=== PATIENT | female | born 1985 | race Caucasian/White ===

== ENCOUNTER 2020-05-22 10:41 | Emergency (ER) | payer BC, MEDICAID ==
[~2020-05-22] VITALS: Ht 157.4 cm; Wt 74.8 kg
[~2020-05-22 10:41] MED LIST: ALPR-114 PO; AMLO5TAB2 PO; AZIT250T12 PO; DCS100C PO; DOXY100C42 PO; HYDR-34 PO; IBP600T1 PO; INDO50CA PO; METR500T PO; SULF1TAB7 PO; Simethicone PO; TRAM50TA2 PO
[2020-05-22] MEDS ORDERED: ONDANSETRON 4 MG/2 ML (SDV) Z0FRAN IVP ONE (10:45)
[2020-05-22] MEDS ORDERED: LACTATED RINGERS 1,000 ML IV ONE (10:45)
[2020-05-22 11:22] LABS: BASOPHILS # (AUTO) 0.1 10^3/uL (0.0-0.1); BASOPHILS % (AUTO) 0 % (0-10); EOSINOPHILS # (AUTO) 0.1 10^3/uL (0.0-0.3); EOSINOPHILS % (AUTO) 1 % (0-10); HEMATOCRIT 48 % (35-52); HEMOGLOBIN 16.2 g/dL (11.5-16.0); LYMPHOCYTES % (AUTO) 22 % (12-44); MEAN CORPUSCULAR HEMOGLOBIN 36 pg (25-34); MEAN CORPUSCULAR HGB CONC 34 g/dL (32-36); MEAN CORPUSCULAR VOLUME 105 fL (80-99); MEAN PLATELET VOLUME 9.3 fL (9.0-12.2); MONOCYTES # (AUTO) 0.7 10^3/uL (0.0-1.0); MONOCYTES % (AUTO) 5 % (0-12); NEUTROPHILS # (AUTO) 9.9 10^3/uL (1.8-7.8); NEUTROPHILS % (AUTO) 72 % (42-75); PLATELET COUNT 358 10^3/uL (130-400); WHITE BLOOD COUNT 13.8 10^3/uL (4.3-11.0)
[2020-05-22 11:40] LABS: BILIRUBIN,URINE NEGATIVE (NEGATIVE); CLARITY,URINE CLEAR; COLOR,URINE YELLOW; GLUCOSE, URINE (UA) NEGATIVE (NEGATIVE); KETONES,URINE NEGATIVE (NEGATIVE); LEUKOCYTE ESTERASE ,URINE NEGATIVE (NEGATIVE); NITRITE,URINE NEGATIVE (NEGATIVE); PROTEIN,URINE NEGATIVE (NEGATIVE)
[2020-05-22 11:44] LABS: ALANINE AMINOTRANSFERASE 23 U/L (0-55); ALBUMIN 4.1 GM/DL (3.2-4.5); ALKALINE PHOSPHATASE 71 U/L (40-136); BILIRUBIN,TOTAL 0.6 MG/DL (0.1-1.0); BUN/CREATININE RATIO 11; CALCIUM 8.5 MG/DL (8.5-10.1); CARBON DIOXIDE 23 MMOL/L (21-32); CHLORIDE 104 MMOL/L (98-107); CREATININE SERUM 0.65 MG/DL (0.60-1.30); GFR ESTIMATED > 60; GLUCOSE 100 MG/DL (70-105); MAGNESIUM 1.9 MG/DL (1.6-2.4); POTASSIUM 3.9 MMOL/L (3.6-5.0); SODIUM 140 MMOL/L (135-145); TOTAL PROTEIN 6.8 GM/DL (6.4-8.2)
[2020-05-22 11:50] LABS: BACTERIA,URINE FEW /HPF
[2020-05-22] MEDS ORDERED: ALPRAZolam 0.25 MG (XANAX) TAB PO ONE (12:00)
--- NOTE | 2020-05-22 12:05 | ED GI ---
General Chief Complaint: Abdominal/GI Problems Stated Complaint: DIZZY,DIARRHEA,N/V Nursing Triage Note: Pt ambulatory into ER with complaint of N/V/D since 0500 today. Pt denies being around anyone sick, but states that she did just finish a quarantine from a positive covid exposure. Pt states that she just doesn't feel good. Pt denies pain. Pt is afebrile. Sepsis Screen: No Definite Risk Source of Information: Patient Exam Limitations: No Limitations History of Present Illness Date Seen by Provider: May 22, 2020 Time Seen by Provider: 11:40 Initial Comments To ER with nausea vomiting diarrhea lightheadedness that started this morning. He just got off of quarantine after exposure to a Covid positive patient. She has no fevers or chills no cough no shortness of breath. She does feel anxious. Timing/Duration: 1-3 Hours Severity/Quality: Moderate Radiation: No Radiation Activities at Onset: None Associated Symptoms: Denies Symptoms Allergies and Home Medications Allergies Coded Allergies: No Known Drug Allergies (Unverified , 09/19/13) Home Medications Ondansetron 4 Mg Tab.rapdis, 4 MG PO Q6H PRN for NAUSEA/VOMITING Prescribed by: COLE JOHNSON on 05/22/20 1207 Patient Home Medication List Home Medication List Reviewed: Yes Review of Systems Review of Systems Constitutional: see HPI EENTM: No Symptoms Reported Respiratory: No Symptoms Reported Cardiovascular: No Symptoms Reported Gastrointestinal: See HPI, Abdominal Pain Genitourinary: No Symptoms Reported Musculoskeletal: no symptoms reported Skin: no symptoms reported Psychiatric/Neurological: See HPI, Anxiety Endocrine: No Symptoms Reported Past Mtcrnbi-Apaeoq-Nledvr Hx Patient Social History Alcohol Use: Rarely Uses Alcohol Beverage of Choice: Beer Smoking Status: Current Everyday Smoker Type Used: Cigarettes Recent Infectious Disease Expo: Yes Recent Hopitalizations: No Immunizations Up To Date Tetanus Booster (TDap): Unknown PED Vaccines UTD: Yes Past Medical History Surgeries: Yes (PYLENOIDAL CYST, LAPAROSCOPIC RSO, ureteral reimplantation WHEN 5, ) Bladder Surgery, Hysterectomy, Oophorectomy, Tubal Ligation Respiratory: No Cardiac: Yes ("BLUE TOE SYNDROME") Neurological: No 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 Sexually Transmitted Disease: No HIV/AIDS: No Gastrointestinal: No Musculoskeletal: No Endocrine: No Loss of Vision: Denies Hearing Impairment: Denies Cancer: No Psychosocial: No Anxiety Integumentary: No Blood Disorders: No ("BLUE TOE SYNDROME") Adverse Reaction/Blood Tranf: No Family Medical History Cardiovascular disease 19 MOTHER Cataracts 19 MOTHER Diabetes mellitus 19 MOTHER FH: diabetes mellitus Hypertension 19 FATHER G8 BROTHER Kidney disease 19 FATHER (POLYCYSTIC KIDNEY DISEASE) G8 BROTHER (PKD) G8 SISTER (PKD) Myocardial infarction 19 MOTHER No Family History of: AIDS Abdominal aortic aneurysm [place]'s disease Alcoholism Alzheimer's disease Arthritis Asthma Colon cancer Completed stroke Dementia Drug abuse Glaucoma Parkinson's disease Prostate cancer Psychosocial problem Respiratory disorder Seizure disorder Severe allergy Thyroid disease Tuberculosis No Pertinent Family Hx Physical Exam Vital Signs Vital Signs - First Documented 05/22/20 10:55 Temp 37.0 Pulse 80 Resp 16 B/P (MAP) 120/79 (93) Pulse Ox 96 O2 Delivery Room Air Capillary Refill : Less Than 3 Seconds Height/Weight/BMI Height: 5'2.00" Weight: 160lbs. 2.0oz. 72.341582it; 30.00 BMI Method:Stated General Appearance: WD/WN, no apparent distress Neck: non-tender, full range of motion Respiratory: normal breath sounds, no respiratory distress, no accessory muscle use Cardiovascular: regular rate, rhythm, no murmur Gastrointestinal: normal bowel sounds, non tender, soft Extremities: normal range of motion, non-tender Neurologic/Psychiatric: alert, normal mood/affect, oriented x 3 Skin: normal color, warm/dry Progress/Results/Core Measures Results/Orders Lab Results Laboratory Tests Test 05/22/20 11:03 05/22/20 11:10 05/22/20 11:23 Range/Units Urine Color YELLOW Urine Clarity CLEAR Urine pH 6.0 5-9 Urine Specific [place] 1.025 H 1.016-1.022 Urine Protein NEGATIVE NEGATIVE Urine Glucose (UA) NEGATIVE NEGATIVE Urine Ketones NEGATIVE NEGATIVE Urine Nitrite NEGATIVE NEGATIVE Urine Bilirubin NEGATIVE NEGATIVE Urine Urobilinogen 0.2 < = 1.0 MG/DL Urine Leukocyte Esterase NEGATIVE NEGATIVE Urine RBC (Auto) NEGATIVE NEGATIVE Urine RBC NONE /HPF Urine WBC NONE /HPF Urine Squamous Epithelial Cells 5-10 /HPF Urine Crystals NONE /LPF Urine Bacteria FEW H /HPF Urine Casts NONE /LPF Urine Mucus NEGATIVE /LPF Urine Culture Indicated NO White Blood Count 13.8 H 4.3-11.0 10^3/uL Red Blood Count 4.53 3.80-5.11 10^6/uL Hemoglobin 16.2 H 11.5-16.0 g/dL Hematocrit 48 35-52 % Mean Corpuscular Volume 105 H 80-99 fL Mean Corpuscular Hemoglobin 36 H 25-34 pg Mean Corpuscular Hemoglobin Concent 34 32-36 g/dL Red Cell Distribution Width 12.7 10.0-14.5 % Platelet Count 358 130-400 10^3/uL Mean Platelet Volume 9.3 9.0-12.2 fL Immature Granulocyte % (Auto) 0 % Neutrophils (%) (Auto) 72 42-75 % Lymphocytes (%) (Auto) 22 12-44 % Monocytes (%) (Auto) 5 0-12 % Eosinophils (%) (Auto) 1 0-10 % Basophils (%) (Auto) 0 0-10 % Neutrophils # (Auto) 9.9 H 1.8-7.8 10^3/uL Lymphocytes # (Auto) 3.0 1.0-4.0 10^3/uL Monocytes # (Auto) 0.7 0.0-1.0 10^3/uL Eosinophils # (Auto) 0.1 0.0-0.3 10^3/uL Basophils # (Auto) 0.1 0.0-0.1 10^3/uL Immature Granulocyte # (Auto) 0.1 0.0-0.1 10^3/uL Sodium Level 140 135-145 MMOL/L Potassium Level 3.9 3.6-5.0 MMOL/L Chloride Level 104 98-107 MMOL/L Carbon Dioxide Level 23 21-32 MMOL/L Anion Gap 13 5-14 MMOL/L Blood Urea Nitrogen 7 7-18 MG/DL Creatinine 0.65 0.60-1.30 MG/DL Estimat Glomerular Filtration Rate > 60 BUN/Creatinine Ratio 11 Glucose Level 100 70-105 MG/DL Calcium Level 8.5 8.5-10.1 MG/DL Corrected Calcium 8.4 L 8.5-10.1 MG/DL Magnesium Level 1.9 1.6-2.4 MG/DL Total Bilirubin 0.6 0.1-1.0 MG/DL Alanine Aminotransferase (ALT/SGPT) 23 0-55 U/L Alkaline Phosphatase 71 40-136 U/L Total Protein 6.8 6.4-8.2 GM/DL Albumin 4.1 3.2-4.5 GM/DL Coronavirus 2019 (SHYAM) Not Detected Not Detecte Micro Results Microbiology 05/22/20 Influenza Types A,B Antigen (YAIMA) - Final, Complete My Orders Orders - COLE JOHNSON APRN Ua Culture If Indicated (05/22/20 11:33) Alprazolam Tablet (Xanax Tablet) (05/22/20 12:00) Medications Given in ED Current Medications Medications Dose Ordered Sig/Foreign Route Start Time Stop Time Status Last Admin Dose Admin Alprazolam 0.25 mg ONCE ONCE PO 05/22/20 12:00 05/22/20 12:01 DC 05/22/20 12:05 0.25 MG Lactated Ringer's 1,000 ml @ 0 mls/hr Q0M ONCE IV 05/22/20 10:45 05/22/20 10:48 DC 05/22/20 11:22 999 MLS/HR Ondansetron HCl 8 mg ONCE ONCE IVP 05/22/20 10:45 05/22/20 10:48 DC 05/22/20 11:22 8 MG Vital Signs/I&O 05/22/20 10:55 Temp 37.0 Pulse 80 Resp 16 B/P (MAP) 120/79 (93) Pulse Ox 96 O2 Delivery Room Air Blood Pressure Mean: 93 Departure Impression Primary Impression: Nausea and vomiting Qualified Codes: R11.2 - Nausea with vomiting, unspecified Additional Impression: Diarrhea Qualified Codes: R19.7 - Diarrhea, unspecified Disposition: 01 HOME, SELF-CARE Condition: Stable Departure-Patient Inst. Decision time for Depature: 12:07 Referrals: NO,LOCAL PHYSICIAN (PCP/Family) Primary Care Physician Patient Instructions: Nausea and Vomiting, Adult ED Add. Discharge Instructions: 1. Drink plenty of fluids. Take medication as directed. All discharge instructions reviewed with patient and/or family. Voiced understanding. Scripts Ondansetron (Ondansetron Odt) 4 Mg Tab.rapdis 4 MG PO Q6H PRN for NAUSEA/VOMITING, #8 TAB 0 Refills Prov: COLE JOHNSON APRN 05/22/20 Work/School Note: Work Release Form Date Seen in the Emergency Department: May 22, 2020 Return to Work: May 24, 2020 COLE JOHNSON APRN May 22, 2020 12:05
[2020-05-22] MEDS ORDERED: ONDA4TAB11 PO (12:07)
--- NOTE | 2020-05-22 13:05 | Diagnostic Imaging Report ---
INDICATION: Pneumonia Frontal chest obtained at 12:43 p.m. and compared to 03/13/2015. Heart and mediastinal silhouette are normal in appearance. The lungs appear clear. There is no pneumothorax or pleural fluid. IMPRESSION: Negative chest. Dictated by: Dictated on workstation # [id number]
[2020-05-22 13:13] VITALS: BP 117/73
== END 2020-05-22 13:13 | disposition home or self-care (01) ==
LOC: EDUNIT# 10:41 → ER 10:44
DX: R11.2 Nausea with vomiting, unspecified (principal); R19.7 Diarrhea, unspecified; F17.210 Nicotine dependence, cigarettes, uncomplicated; Z83.3 Family history of diabetes mellitus; Z82.49 Family history of ischemic heart disease and other diseases of the circulatory system; Z20.822 Contact with and (suspected) exposure to COVID-19
CPT/HCPCS: 71045; 80053; 81000; 83735; 85025; 87804; 99284; U0002; 36415; 87635

== ENCOUNTER 2020-08-19 11:06 | Emergency (ER) | payer BC, MEDICAID ==
[~2020-08-19] VITALS: Ht 154.9 cm; Wt 77.1 kg
[~2020-08-19 11:06] MED LIST changes: +ONDA4TAB11 PO
--- NOTE | 2020-08-19 11:54 | ED General ---
General Chief Complaint: Dizziness/Syncope Stated Complaint: DIZZINESS Nursing Triage Note: PT AMBULATE TO TRIAGE WITH C/O BEING DIZZY AT WORK. PT REPORTS THAT SHE LAID DOWN ON THE CONCRETE TO FEEL BETTER. PT REPORT BP OF 123/58 AND PULSE OF 92 AT WORK. PT REPORTS HX OF HYPOGLYCEMIA. PT REPORTS EATING A BREAKFAST CEREAL BAR AND HALF A BOTTLE OF DR. HOLLAND AT THIS TIME. Source of Information: Patient Exam Limitations: No Limitations History of Present Illness Date Seen by Provider: Aug 19, 2020 Time Seen by Provider: 11:52 Initial Comments To Er with c/o "shakiness on the inside", general malaise, dizziness, nausea sudden in onset while sitting at her desk at work. Has passed out before without known cause but has been several years ago. No fever, cough, sob, chest pian, or palpitations. Timing/Duration: 1 Hour Severity: Moderate Associated Systoms: Weakness Allergies and Home Medications Allergies Coded Allergies: No Known Drug Allergies (Unverified , 09/19/13) Home Medications Ondansetron 4 Mg Tab.rapdis, 4 MG PO Q6H PRN for NAUSEA/VOMITING Prescribed by: COLE JOHNSON on 05/22/20 1207 Patient Home Medication List Home Medication List Reviewed: Yes Review of Systems Review of Systems Constitutional: see HPI; No diaphoresis EENTM: see HPI Respiratory: no symptoms reported Cardiovascular: no symptoms reported Genitourinary: no symptoms reported Musculoskeletal: no symptoms reported Skin: no symptoms reported Psychiatric/Neurological: No Symptoms Reported Past Ckgdeua-Rwklew-Kxdbss Hx Patient Social History Tobacco Use?: Yes Tobacco type used: Cigarettes Smoking Status: Current Everyday Smoker Substance use?: Yes Substance type: Marijuana Alcohol Use?: Yes Alcohol type: Beer, Hard Liquor, Wine Alcohol Frequency: Couple times a week Pt feels they are or have been: No Immunizations Up To Date Tetanus Booster (TDap): Unknown PED Vaccines UTD: Yes Past Medical History Surgeries: Yes (PYLENOIDAL CYST, LAPAROSCOPIC RSO, ureteral reimplantation WHEN 5, ) Bladder Surgery, Hysterectomy, Oophorectomy, Tubal Ligation Respiratory: No Cardiac: Yes ("BLUE TOE SYNDROME") Neurological: No 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 Sexually Transmitted Disease: No HIV/AIDS: No Gastrointestinal: No Musculoskeletal: No Endocrine: No Loss of Vision: Denies Hearing Impairment: Denies Cancer: No Psychosocial: No Anxiety Integumentary: No Blood Disorders: No ("BLUE TOE SYNDROME") Adverse Reaction/Blood Tranf: No Family Medical History Cardiovascular disease 19 MOTHER Cataracts 19 MOTHER Diabetes mellitus 19 MOTHER FH: diabetes mellitus Hypertension 19 FATHER G8 BROTHER Kidney disease 19 FATHER (POLYCYSTIC KIDNEY DISEASE) G8 BROTHER (PKD) G8 SISTER (PKD) Myocardial infarction 19 MOTHER No Family History of: AIDS Abdominal aortic aneurysm [place]'s disease Alcoholism Alzheimer's disease Arthritis Asthma Colon cancer Completed stroke Dementia Drug abuse Glaucoma Parkinson's disease Prostate cancer Psychosocial problem Respiratory disorder Seizure disorder Severe allergy Thyroid disease Tuberculosis No Pertinent Family Hx Physical Exam Vital Signs Vital Signs - First Documented 08/19/20 08/19/20 11:32 13:15 Temp 36.2 Pulse 70 Resp 17 B/P (MAP) 155/99 (117) Pulse Ox 98 O2 Delivery Room Air Capillary Refill : Less Than 3 Seconds Height, Weight, BMI Height: 5'2.00" Weight: 160lbs. 2.0oz. 72.968797kl; 32.00 BMI Method:Stated General Appearance: No Apparent Distress, WD/WN, Anxious Eyes: Bilateral Eye Normal Inspection, Bilateral Eye PERRL, Bilateral Eye EOMI HEENT: PERRL/EOMI, TMs Normal Neck: Full Range of Motion, Normal Inspection Respiratory: No Accessory Muscle Use, No Respiratory Distress Cardiovascular: Regular Rate, Rhythm, Normal Peripheral Pulses Gastrointestinal: Normal Bowel Sounds, Non Tender, Soft Extremity: Normal Capillary Refill, Normal Inspection Neurologic/Psychiatric: Alert, Oriented x3 Skin: Normal Color, Warm/Dry Progress/Results/Core Measures Suspected Sepsis SIRS Temperature: Pulse: 70 Respiratory Rate: 17 Laboratory Tests 08/19/20 12:25: White Blood Count 13.2H Blood Pressure 155 /99 Mean: 117 Laboratory Tests 08/19/20 12:25: Creatinine 0.71, Platelet Count 376, Total Bilirubin 0.6 Results/Orders Lab Results Laboratory Tests Test 08/19/20 12:15 08/19/20 12:25 Range/Units Urine Color YELLOW Urine Clarity CLEAR Urine pH 6.0 5-9 Urine Specific [place] >=1.030 1.016-1.022 Urine Protein NEGATIVE NEGATIVE Urine Glucose (UA) NEGATIVE NEGATIVE Urine Ketones NEGATIVE NEGATIVE Urine Nitrite NEGATIVE NEGATIVE Urine Bilirubin NEGATIVE NEGATIVE Urine Urobilinogen 0.2 < = 1.0 MG/DL Urine Leukocyte Esterase NEGATIVE NEGATIVE Urine RBC (Auto) NEGATIVE NEGATIVE Urine RBC NONE /HPF Urine WBC 0-2 /HPF Urine Squamous Epithelial Cells 25-50 H /HPF Urine Crystals PRESENT H /LPF Urine Amorphous Sediment MOD RICHIE URATES H /LPF Urine Bacteria MODERATE H /HPF Urine Casts NONE /LPF Urine Mucus NEGATIVE /LPF Urine Culture Indicated NO White Blood Count 13.2 H 4.3-11.0 10^3/uL Red Blood Count 4.40 3.80-5.11 10^6/uL Hemoglobin 15.8 11.5-16.0 g/dL Hematocrit 47 35-52 % Mean Corpuscular Volume 106 H 80-99 fL Mean Corpuscular Hemoglobin 36 H 25-34 pg Mean Corpuscular Hemoglobin Concent 34 32-36 g/dL Red Cell Distribution Width 12.4 10.0-14.5 % Platelet Count 376 130-400 10^3/uL Mean Platelet Volume 9.1 9.0-12.2 fL Immature Granulocyte % (Auto) 0 % Neutrophils (%) (Auto) 67 42-75 % Lymphocytes (%) (Auto) 26 12-44 % Monocytes (%) (Auto) 6 0-12 % Eosinophils (%) (Auto) 1 0-10 % Basophils (%) (Auto) 1 0-10 % Neutrophils # (Auto) 8.9 H 1.8-7.8 X 10^3 Lymphocytes # (Auto) 3.4 1.0-4.0 X 10^3 Monocytes # (Auto) 0.8 0.0-1.0 X 10^3 Eosinophils # (Auto) 0.1 0.0-0.3 10^3/uL Basophils # (Auto) 0.1 0.0-0.1 10^3/uL Immature Granulocyte # (Auto) 0.0 0.0-0.1 10^3/uL Sodium Level 138 135-145 MMOL/L Potassium Level 3.7 3.6-5.0 MMOL/L Chloride Level 102 98-107 MMOL/L Carbon Dioxide Level 23 21-32 MMOL/L Anion Gap 13 5-14 MMOL/L Blood Urea Nitrogen 6 L 7-18 MG/DL Creatinine 0.71 0.60-1.30 MG/DL Estimat Glomerular Filtration Rate > 60 BUN/Creatinine Ratio 8 Glucose Level 94 70-105 MG/DL Calcium Level 8.8 8.5-10.1 MG/DL Corrected Calcium 8.7 8.5-10.1 MG/DL Total Bilirubin 0.6 0.1-1.0 MG/DL Aspartate Amino Transf (AST/SGOT) 27 5-34 U/L Alanine Aminotransferase (ALT/SGPT) 29 0-55 U/L Alkaline Phosphatase 69 40-136 U/L Total Protein 6.9 6.4-8.2 GM/DL Albumin 4.1 3.2-4.5 GM/DL Smear Scan YES My Orders Orders - COLE JOHNSON APRN Ekg Tracing (08/19/20 11:47) Cbc With Automated Diff (08/19/20 11:47) Comprehensive Metabolic Panel (08/19/20 11:47) Ua Culture If Indicated (08/19/20 11:51) Alprazolam Tablet (Xanax Tablet) (08/19/20 12:00) Medications Given in ED Current Medications Medications Dose Ordered Sig/Foreign Route Start Time Stop Time Status Last Admin Dose Admin Alprazolam 0.25 mg ONCE ONCE PO 08/19/20 12:00 08/19/20 12:01 DC 08/19/20 11:55 0.25 MG Vital Signs/I&O 08/19/20 08/19/20 11:32 13:15 Temp 36.2 36.2 Pulse 70 70 Resp 17 17 B/P (MAP) 155/99 (117) 155/99 (117) Pulse Ox 98 O2 Delivery Room Air Room Air Capillary Refill : Less Than 3 Seconds Blood Pressure Mean: 117 Departure Communication (Admissions) EKG done at 1158 shows sinus rhythm rate of 63 normal intervals no ectopy Impression Primary Impression: Episodic lightheadedness Disposition: 01 HOME, SELF-CARE Condition: Stable Departure-Patient Inst. Decision time for Depature: 13:10 Referrals: NO,LOCAL PHYSICIAN (PCP/Family) Primary Care Physician Patient Instructions: NO INSTRUCTIONS GIVEN, Syncope (Fainting) (DC) Add. Discharge Instructions: Return to ER for any concerns. Follow-up with your doctor later this week for recheck. All discharge instructions reviewed with patient and/or family. Voiced understanding. Work/School Note: Work Release Form Date Seen in the Emergency Department: Aug 19, 2020 Return to Work: Aug 20, 2020 COLE JOHNSON APRN Aug 19, 2020 11:54
[2020-08-19] MEDS ORDERED: ALPRAZolam 0.25 MG (XANAX) TAB PO ONE (12:00)
[2020-08-19 12:25] LABS: BILIRUBIN,URINE NEGATIVE (NEGATIVE); CLARITY,URINE CLEAR; COLOR,URINE YELLOW; GLUCOSE, URINE (UA) NEGATIVE (NEGATIVE); KETONES,URINE NEGATIVE (NEGATIVE); LEUKOCYTE ESTERASE ,URINE NEGATIVE (NEGATIVE); NITRITE,URINE NEGATIVE (NEGATIVE); PROTEIN,URINE NEGATIVE (NEGATIVE)
[2020-08-19 12:40] LABS: BASOPHILS # (AUTO) 0.1 10^3/uL (0.0-0.1); BASOPHILS % (AUTO) 1 % (0-10); EOSINOPHILS # (AUTO) 0.1 10^3/uL (0.0-0.3); EOSINOPHILS % (AUTO) 1 % (0-10); HEMATOCRIT 47 % (35-52); HEMOGLOBIN 15.8 g/dL (11.5-16.0); LYMPHOCYTES # (AUTO) 3.4 X 10^3 (1.0-4.0); LYMPHOCYTES % (AUTO) 26 % (12-44); MEAN CORPUSCULAR HEMOGLOBIN 36 pg (25-34); MEAN CORPUSCULAR HGB CONC 34 g/dL (32-36); MEAN CORPUSCULAR VOLUME 106 fL (80-99); MEAN PLATELET VOLUME 9.1 fL (9.0-12.2); MONOCYTES # (AUTO) 0.8 X 10^3 (0.0-1.0); MONOCYTES % (AUTO) 6 % (0-12); NEUTROPHILS # (AUTO) 8.9 X 10^3 (1.8-7.8); NEUTROPHILS % (AUTO) 67 % (42-75); PLATELET COUNT 376 10^3/uL (130-400); WHITE BLOOD COUNT 13.2 10^3/uL (4.3-11.0)
[2020-08-19 12:41] LABS: BACTERIA,URINE MODERATE /HPF; WBC,URINE 0-2 /HPF
[2020-08-19 12:42] LABS: AMORPHOUS SEDIMENT,UR MOD AMOR URATES /LPF; SQUAMOUS EPITHELIAL CELL,UR 25-50 /HPF
[2020-08-19 12:53] LABS: SMEAR SCAN COMMENT YES
[2020-08-19 12:55] LABS: ALBUMIN 4.1 GM/DL (3.2-4.5); CHLORIDE 102 MMOL/L (98-107); POTASSIUM 3.7 MMOL/L (3.6-5.0); SODIUM 138 MMOL/L (135-145)
[2020-08-19 12:57] LABS: CALCIUM 8.8 MG/DL (8.5-10.1)
[2020-08-19 12:58] LABS: GLUCOSE 94 MG/DL (70-105); TOTAL PROTEIN 6.9 GM/DL (6.4-8.2)
[2020-08-19 12:59] LABS: CARBON DIOXIDE 23 MMOL/L (21-32)
[2020-08-19 13:00] LABS: BILIRUBIN,TOTAL 0.6 MG/DL (0.1-1.0)
[2020-08-19 13:01] LABS: ALKALINE PHOSPHATASE 69 U/L (40-136); CREATININE SERUM 0.71 MG/DL (0.60-1.30); GFR ESTIMATED > 60
[2020-08-19 13:02] LABS: BUN/CREATININE RATIO 8
[2020-08-19 13:04] LABS: ALANINE AMINOTRANSFERASE 29 U/L (0-55)
[2020-08-19 13:15] VITALS: BP 155/99
== END 2020-08-19 13:16 | disposition home or self-care (01) ==
LOC: EDUNIT# 11:06 → ER 11:07
DX: R42 Dizziness and giddiness (principal); F17.210 Nicotine dependence, cigarettes, uncomplicated
CPT/HCPCS: 36415; 80053; 81000; 85025; 93005

== ENCOUNTER 2021-03-14 23:52 | Emergency (ER) | payer BC, MEDICAID ==
[~2021-03-14] VITALS: Ht 157.5 cm; Wt 73.0 kg
[2021-03-15] MEDS ORDERED: fentaNYL INJ 100 MCG/2 ML AMP IVP STA (00:22)
[2021-03-15] MEDS ORDERED: KETOROLAC 30 MG/ML VIAL IVP STA (00:22)
[2021-03-15 00:34] LABS: BASOPHILS # (AUTO) 0.1 10^3/uL (0.0-0.1); BASOPHILS % (AUTO) 1 % (0-10); EOSINOPHILS # (AUTO) 0.3 10^3/uL (0.0-0.3); EOSINOPHILS % (AUTO) 2 % (0-10); HEMATOCRIT 43 % (35-52); HEMOGLOBIN 15.2 g/dL (11.5-16.0); LYMPHOCYTES # (AUTO) 5.6 10^3/uL (1.0-4.0); LYMPHOCYTES % (AUTO) 48 % (12-44); MEAN CORPUSCULAR HEMOGLOBIN 37 pg (25-34); MEAN CORPUSCULAR HGB CONC 35 g/dL (32-36); MEAN CORPUSCULAR VOLUME 105 fL (80-99); MEAN PLATELET VOLUME 9.4 fL (9.0-12.2); MONOCYTES # (AUTO) 0.7 10^3/uL (0.0-1.0); MONOCYTES % (AUTO) 6 % (0-12); NEUTROPHILS # (AUTO) 4.8 10^3/uL (1.8-7.8); NEUTROPHILS % (AUTO) 42 % (42-75); PLATELET COUNT 362 10^3/uL (130-400); WHITE BLOOD COUNT 11.6 10^3/uL (4.3-11.0)
[2021-03-15 00:47] LABS: ALBUMIN 3.5 GM/DL (3.2-4.5); POTASSIUM 3.4 MMOL/L (3.6-5.0)
[2021-03-15 00:48] LABS: CALCIUM 8.5 MG/DL (8.5-10.1)
[2021-03-15 00:50] LABS: TOTAL PROTEIN 5.7 GM/DL (6.4-8.2)
[2021-03-15 00:51] LABS: BILIRUBIN,TOTAL 0.4 MG/DL (0.1-1.0)
[2021-03-15 00:53] LABS: CREATININE SERUM 0.65 MG/DL (0.60-1.30)
[2021-03-15 01:03] LABS: ERYTHROCYTE SEDIMENTATION RATE 1 MM/HR (0-20)
--- NOTE | 2021-03-15 01:11 | ED Lower Extremity ---
General Chief Complaint: Lower Extremity Stated Complaint: BILAT LEG PAIN Nursing Triage Note: TO ED VIA POV AND W/C TO ROOM 5. PT STATES, "I CAN BARELY WALK". THIS STARTED THIS MORNING. C/O PAIN TO BILATERAL KNEES. STATES, "I THINK ITS GOUT". LAST TYLENOL AT 1500. PT MOANING AND CRYING DURING TRIAGE. Source: patient Exam Limitations: no limitations History of Present Illness Date Seen by Provider: Mar 15, 2021 Time Seen by Provider: 00:10 Initial Comments Here with report of acute onset of bilateral knee pain with redness and swelling. States that she went to bed and got up to go the bathroom and could not walk because the pain was so bad. She took Tylenol yesterday afternoon for the pain and that did not help. She is currently on doxycycline as well as dexamethasone for possible pneumonia. She has a few days left of the prescriptions of each. She was tested for Covid at the time of initial infection and that was negative. Denies nausea, vomiting or diarrhea. She is concerned that she may have gout. Does have history of Raynaud's disease but is not complaining of vascular problems in the feet. She does continue to smoke occasionally. Onset: other (Few days but getting worse tonight markedly) Severity: moderate Method of Injury: unknown Modifying Factors: Improves With Immobilization; Worse With Movement Allergies and Home Medications Allergies Coded Allergies: No Known Drug Allergies (Unverified , 09/19/13) Patient Home Medication List Home Medication List Reviewed: Yes Ondansetron (Ondansetron Odt) 4 Mg Tab.rapdis, 4 MG PO Q6H PRN for NAUSEA/VOMITING Prescribed by: COLE JOHNSON on 05/22/20 1207 Review of Systems Constitutional: see HPI; No chills, No fever EENTM: no symptoms reported; No eye pain, No vision loss Respiratory: cough; No short of breath Cardiovascular: No chest pain, No edema Gastrointestinal: No nausea, No vomiting Genitourinary: No dysuria, No pain Musculoskeletal: joint pain, muscle pain Skin: change in color; No lesions Psychiatric/Neurological: No Symptoms Reported All Other Systems Reviewed Negative Unless Noted: Yes Past Ivkivee-Rldonb-Ufvzmo Hx Patient Social History Tobacco Use?: Yes Tobacco type used: Cigarettes Smoking Status: Current Everyday Smoker Alcohol Use?: Yes Alcohol Frequency: Once in a while Immunizations Up To Date Tetanus Booster (TDap): Unknown PED Vaccines UTD: Yes COVID19 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 Past Medical History Surgery/Hospitalization HX: HYSTERECTOMY BLADDER SX GOUT Surgeries: Yes (PYLENOIDAL CYST, LAPAROSCOPIC RSO, ureteral reimplantation WHEN 5, ) Bladder Surgery, Hysterectomy, Oophorectomy, Tubal Ligation Respiratory: No Cardiac: Yes ("BLUE TOE SYNDROME") Neurological: No Reproductive Disorders: Yes FORESTRY 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 AID History: Hysterectomy Sexually Transmitted Disease: No HIV/AIDS: No Gastrointestinal: No Musculoskeletal: No Endocrine: No Loss of Vision: Denies Hearing Impairment: Denies Cancer: No Psychosocial: No Anxiety Integumentary: No Blood Disorders: No ("BLUE TOE SYNDROME") Adverse Reaction/Blood Tranf: No Family Medical History Reviewed Nursing Family Hx Cardiovascular disease 19 MOTHER Cataracts 19 MOTHER Diabetes mellitus 19 MOTHER FH: diabetes mellitus Hypertension 19 FATHER G8 BROTHER Kidney disease 19 FATHER (POLYCYSTIC KIDNEY DISEASE) G8 BROTHER (PKD) G8 SISTER (PKD) Myocardial infarction 19 MOTHER No Pertinent Family Hx Physical Exam Vital Signs Vital Signs - First Documented 03/14/21 23:58 Temp 36.9 Pulse 68 Resp 20 B/P (MAP) 117/79 (92) Pulse Ox 98 O2 Delivery Room Air Capillary Refill : Less Than 3 Seconds Height, Weight, BMI Height: 5'2.00" Weight: 160lbs. 2.0oz. [id number]; 29.00 BMI Method:Stated General Appearance: WD/WN, moderate distress HEENT: PERRL/EOMI, pharynx normal Neck: full range of motion, supple Cardiovascular: regular rate, rhythm, no murmur Respiratory: lungs clear, normal breath sounds Gastrointestinal: non tender, soft Knees: bilateral knee other (Bilateral knees reported is very tender. No obvious swelling, no redness and no deformity noted to either knee.) Feet: bilateral foot other (Bilateral feet with circulation intact with toes that are pink and cap refill less than 2 seconds to all toes. No swelling of the ankles or feet noted.) Neurologic/Psychiatric: alert, oriented x 3 Skin: normal color, warm/dry Progress/Results/Core Measures Results/Orders Lab Results Laboratory Tests Test 03/15/21 00:25 Range/Units White Blood Count 11.6 H 4.3-11.0 10^3/uL Red Blood Count 4.13 3.80-5.11 10^6/uL Hemoglobin 15.2 11.5-16.0 g/dL Hematocrit 43 35-52 % Mean Corpuscular Volume 105 H 80-99 fL Mean Corpuscular Hemoglobin 37 H 25-34 pg Mean Corpuscular Hemoglobin Concent 35 32-36 g/dL Red Cell Distribution Width 12.9 10.0-14.5 % Platelet Count 362 130-400 10^3/uL Mean Platelet Volume 9.4 9.0-12.2 fL Immature Granulocyte % (Auto) 1 % Neutrophils (%) (Auto) 42 42-75 % Lymphocytes (%) (Auto) 48 H 12-44 % Monocytes (%) (Auto) 6 0-12 % Eosinophils (%) (Auto) 2 0-10 % Basophils (%) (Auto) 1 0-10 % Neutrophils # (Auto) 4.8 1.8-7.8 10^3/uL Lymphocytes # (Auto) 5.6 H 1.0-4.0 10^3/uL Monocytes # (Auto) 0.7 0.0-1.0 10^3/uL Eosinophils # (Auto) 0.3 0.0-0.3 10^3/uL Basophils # (Auto) 0.1 0.0-0.1 10^3/uL Immature Granulocyte # (Auto) 0.1 0.0-0.1 10^3/uL Erythrocyte Sedimentation Rate 1 0-20 MM/HR Sodium Level 137 135-145 MMOL/L Potassium Level 3.4 L 3.6-5.0 MMOL/L Chloride Level 103 98-107 MMOL/L Carbon Dioxide Level 21 21-32 MMOL/L Anion Gap 13 5-14 MMOL/L Blood Urea Nitrogen 9 7-18 MG/DL Creatinine 0.65 0.60-1.30 MG/DL Estimat Glomerular Filtration Rate 116 BUN/Creatinine Ratio 14 Glucose Level 99 70-105 MG/DL Calcium Level 8.5 8.5-10.1 MG/DL Corrected Calcium 8.9 8.5-10.1 MG/DL Total Bilirubin 0.4 0.1-1.0 MG/DL Aspartate Amino Transf (AST/SGOT) 18 5-34 U/L Alanine Aminotransferase (ALT/SGPT) 23 0-55 U/L Alkaline Phosphatase 58 40-136 U/L C-Reactive Protein High Sensitivity 0.78 H 0.00-0.50 MG/DL Total Protein 5.7 L 6.4-8.2 GM/DL Albumin 3.5 3.2-4.5 GM/DL My Orders Orders - RAYMOND BECKETT MD Cbc With Automated Diff (03/15/21 00:22) Comprehensive Metabolic Panel (03/15/21 00:22) Hs C Reactive Protein (03/15/21:22) Erythrocyte Sedimentation Rate (03/15/21:22) Fentanyl Inj (Sublimaze Injection) (03/15/21 00:22) Ketorolac Injection (Toradol Injection) (03/15/21 00:22) Ed Iv/Invasive Line Start (03/15/21 00:22) Vital Signs/I&O 03/14/21 23:58 Temp 36.9 Pulse 68 Resp 20 B/P (MAP) 117/79 (92) Pulse Ox 98 O2 Delivery Room Air Blood Pressure Mean: 92 Progress Progress Note : Progress Note Seen and evaluated. There is no obvious injury or swelling of the knees. No indication of infection. Patient is currently on dexamethasone. We will check basic labs including CRP and sed rate and give Toradol 30 mg IV as well as fentanyl 50 mcg IV. Monitor patient. 0147: Overall doing a little bit better. Labs are not concerning at this point. I did verify with her that she is still on dexamethasone. She is also on doxycycline. She will complete those. She agrees that the swelling and redness is gone to the knees now. At this point I do not think further work-up is indicated currently but she should do follow-up and this was discussed with the patient and she agrees. Discharged home with return precautions. Patient verbalized understanding of instructions and agreement with plan. Departure Impression Primary Impression: Bilateral knee pain Qualified Codes: M25.561 - Pain in right knee; M25.562 - Pain in left knee Disposition: 01 HOME, SELF-CARE Condition: Improved Departure-Patient Inst. Decision time for Depature: 01:48 Referrals: NO,LOCAL PHYSICIAN (PCP/Family) Primary Care Physician Patient Instructions: Knee Pain (DC) Add. Discharge Instructions: All discharge instructions reviewed with patient and/or family. Voiced understanding. You may take ibuprofen 600 mg every 8 hours as needed for pain. You may take prescribed pain medicine as directed as well. If you are not taking the prescribed pain medicine, you may take Tylenol/acetaminophen 1000 mg every 6 hours as needed for pain but do not take both at the same time as they both have acetaminophen in them. Is very important that you follow-up with your doctor for recheck and further evaluation. Return for worse pain, fever, vomiting, weakness, breathing problems or other concerns as needed. Scripts Hydrocodone Bit/Acetaminophen (HYDROcodone/APAP 5 MG/325 MG TAB) 1 Tab Tab 1 TAB PO Q6H for Pain, #8 TAB 0 Refills Prov: RAYMOND BECKETT MD 03/15/21 RAYMOND BECKETT MD Mar 15, 2021 01:11
[2021-03-15] MEDS ORDERED: ACHD5005 PO (01:49)
[2021-03-15] MEDS ORDERED: HYDROcodone/APAP 5 MG/325 MG (LORTAB) TAB PO ONE (02:00)
[2021-03-15 02:07] VITALS: BP 117/79
== END 2021-03-15 02:08 | disposition home or self-care (01) ==
LOC: EDUNIT# 23:52 → ER 23:53
DX: M25.561 Pain in right knee (principal); M25.562 Pain in left knee; F17.210 Nicotine dependence, cigarettes, uncomplicated
CPT/HCPCS: 36415; 80053; 85025; 85652; 86141

== ENCOUNTER 2021-05-14 05:28 | Outpatient (CLI) | payer BC, MEDICAID ==
[~2021-05-14] VITALS: Ht 157.5 cm; Wt 78.6 kg
[~2021-05-14 05:28] MED LIST changes: +ACHD5005 PO
== END 2021-05-14 11:48 ==
LOC: PREOP 05:28
PROVIDERS: ATTEND Surgery
DX: Z01.818 Encounter for other preprocedural examination (principal)

== ENCOUNTER 2021-05-20 08:40 | Day surgery (SDC) | payer BC, MEDICAID ==
[~2021-05-20] VITALS: Ht 157 cm; Wt 78.6 kg
[2021-05-20] VITALS (7 sets, daily range): BP systolic 105–144; BP diastolic 66–92
[2021-05-20] MEDS ORDERED: LIDOCAINE/EPI 2% 1:100,00 (XYLOCAINE) 20 ML VIAL ONE (08:56)
--- NOTE | 2021-05-20 08:58 | Progress Note-Pre Operative ---
Pre-Operative Progress Note H&P Reviewed The H&P was reviewed, patient examined and no changes noted. Date Seen by Provider: May 20, 2021 Time Seen by Provider: 08:58 Date H&P Reviewed: May 20, 2021 Time H&P Reviewed: 08:58 Pre-Operative Diagnosis: cyst right face TOO ROSALES DO May 20, 2021 08:58
[2021-05-20] MEDS ORDERED: ceFAZolin 2 GM IV Premixed 50 ML IV ONE ×2 (09:15→10:00)
[2021-05-20] MEDS ORDERED: LACTATED RINGERS 1,000 ML IV PRN (09:15)
[2021-05-20] MEDS ORDERED: LIDOCAINE PF 2% 5 ML (XYLOCAINE) VIAL ONE (09:18)
[2021-05-20] MEDS ORDERED: proPOfol 200 MG/20 ML (DIPRIVAN) VIAL IV ONE (09:18)
[2021-05-20] MEDS ORDERED: fentaNYL INJ 100 MCG/2 ML AMP ONE (09:19)
[2021-05-20] MEDS ORDERED: MIDAZOLAM 2 MG/2 ML (VERSED) VIAL ONE (09:19)
[2021-05-20] MEDS ORDERED: ceFAZolin 2 GM IV Premixed 50 ML ONE (09:26)
[2021-05-20] MEDS ORDERED: MUPIROCIN 2% OINT 22 GM (BACTROBAN) TUBE ONE (10:23)
[2021-05-20] MEDS ORDERED: ONDANSETRON 4 MG/2 ML (SDV) Z0FRAN ONE (10:27)
[2021-05-20] MEDS ORDERED: SEVOFLURANE (ULTANE) 15 ML INHAL SOLN ONE (10:27)
--- NOTE | 2021-05-20 10:30 | Discharge Inst-Simple/Standard ---
Discharge Inst-Standard Patient Instructions/Follow Up Plan of Care/Instructions/FU: 1 week Leslee suture removal Activity as Tolerated: Yes Discharge Diet: Regular Diet Other Inst to Patient Follow up Appt: Make appointment for 1 week. Instructions: No strenuous activity. May shower in 24 hours, no tub bath or soaking. Use incentive spirometer at home as directed. No Smoking Skin/Wound Care: Keep area clean and dry. Symptoms to Report: Appetite Changes, Extremity Discoloration, Numbness/Tingling, Swelling Increased, Bleeding Excessive, Eyesight Changes, Pain Increased, Urine Color Change, Constipation(Persistent), Fever over 101 degree F, Pain/Pressure in chest, Urinating Difficulty, Cough Up/Vomit Blood, Heart Beat Irreg/Pounding, Pain/Pressure in jaw, Vaginal Bleeding Increase, Cramps in feet or legs, Lightheadedness, Pain/Pressure in shoulder, Diarrhea(Persistent), Memory Changes Suddenly, Questions/Concerns, Weight gain consecutive days, Dizziness/Fainting, Nausea/Vomiting, Shortness of Breath, Weight gain over 2 pounds If questions or concerns contact your physician Or seek help at emergency department. TOO ROSALES DO May 20, 2021 10:30
--- NOTE | 2021-05-21 01:28 | OPERATIVE REPORT ---
DATE OF SERVICE: 05/20/2021 PREOPERATIVE DIAGNOSIS: Cyst, right face. POSTOPERATIVE DIAGNOSIS: Cyst, right face. PROCEDURE: Excision of right face cyst, 1.3 x 3.9 cm. SURGEON: Too Camilo DO ANESTHESIA: General. ESTIMATED BLOOD LOSS: Minimal. COMPLICATIONS: None. INDICATIONS: The patient is a 36-year-old female with a cyst on the right face. She understands risks and benefits of procedure and wishes to proceed. Consent was signed in the chart. DESCRIPTION OF PROCEDURE: The patient was taken to the operating suite. She was prepped and draped in sterile fashion. Timeout was performed. Local anesthetic was infiltrated and elliptical incision measuring 1.3 x 3.9 cm was made around the cyst area. Skin and subcutaneous tissue was removed using cautery. The hemostasis was achieved. Skin was then closed using 5-0 Prolene in simple interrupted fashion. The area was then washed and dried and sterile bandages applied. The patient tolerated procedure well without any complications. She was taken to recovery room in stable condition. Job ID: [id number] DocumentID: [id number] Dictated Date: 05/20/2021 18:18:34 Animal Keeper Head Date: 05/21/2021 01:27:32 Dictated By: TOO CAMILO DO
--- NOTE | 2021-05-27 13:22 | Anesthesia-General Post-Op ---
General Significant Intra-Op Events Notes late entry 05-20-21 at 1130 Patient Condition Mental Status/LOC: Same as Preop Cardiovascular: Satisfactory Nausea/Vomiting: Absent Respiratory: Satisfactory Pain: Controlled Complications: Absent Post Op Complications Complications None Follow Up Care/Instructions Patient Instructions None needed. Anesthesia/Patient Condition Patient Condition Patient is doing well, no complaints, stable vital signs, no apparent adverse anesthesia problems. No complications reported per nursing. MARY VARMA CRNA May 27, 2021 13:22
== END 2021-05-20 11:55 | disposition home or self-care (01) ==
LOC: SDC 08:40
PROVIDERS: ATTEND Surgery
DX: L72.0 Epidermal cyst (principal); M27.40 Unspecified cyst of jaw; F17.210 Nicotine dependence, cigarettes, uncomplicated
CPT/HCPCS: 87081; 88304

== ENCOUNTER 2021-05-31 21:36 | Emergency (ER) | payer BC, MEDICAID ==
[~2021-05-31] VITALS: Ht 155 cm; Wt 77.1 kg
[2021-05-31 21:53] VITALS: BP 142/93
--- NOTE | 2021-05-31 22:33 | ED Integumentary General ---
General Chief Complaint: Skin/Wound Problems Stated Complaint: HAD SURGERY AND THE STICHES CAME OUT Nursing Triage Note: Pt presents per POV w/ c/o surgical wound opening up after suture removal today. Source: patient Exam Limitations: no limitations (ERICKA DUARTE) History of Present Illness Date Seen by Provider: May 31, 2021 Time Seen by Provider: 22:09 Initial Comments Patient is a 36-year-old female who presents ED with evaluation of a wound to her right side of face. She had a cyst removed by Dr. Camilo on May 20. She states she had her sutures removed today. Went to work noted a opening of the wound this evening. She reports very minimal bloody drainage. No facial swelling or redness. She deniesof any trauma, fever, ear pain.. (ERICKA DUARTE) Allergies and Home Medications Allergies Coded Allergies: No Known Drug Allergies (Unverified , 09/19/13) Patient Home Medication List Home Medication List Reviewed: Yes (ERICKA DUARTE) No Active Prescriptions or Reported Meds Review of Systems Review of Systems Constitutional: No chills, No diaphoresis, No fever, No malaise EENTM: No blurred vision, No double vision, No dental problems, No mouth pain, No mouth swelling, No throat pain, No other Respiratory: No dyspnea on exertion Cardiovascular: No chest pain Gastrointestinal: No abdominal pain, No diarrhea, No nausea, No vomiting Genitourinary: No see HPI, No decreased output Musculoskeletal: No back pain, No joint pain Skin: No see HPI; change in color (ERICKA DUARTE) All Other Systems Reviewed Negative Unless Noted: Yes (ERICKA DUARTE) Past Ckcsafr-Xfemxb-Dudpll Hx Immunizations Up To Date Tetanus Booster (TDap): Unknown PED Vaccines UTD: Yes (ERICKA DUARTE) Past Medical History Surgery/Hospitalization HX: HYSTERECTOMY BLADDER SX GOUT Surgeries: Yes (PYLENOIDAL CYST, LAPAROSCOPIC RSO, ureteral reimplantation WHEN 5, ) Bladder Surgery, Hysterectomy, Oophorectomy, Tubal Ligation Respiratory: No Currently Using CPAP: No Currently Using BIPAP: No Cardiac: Yes ("BLUE TOE SYNDROME") Neurological: No 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 Sexually Transmitted Disease: No HIV/AIDS: No Genitourinary: No Gastrointestinal: No Musculoskeletal: No Endocrine: No HEENT: Yes (GLASSES) Loss of Vision: Denies Hearing Impairment: Denies Cancer: No Psychosocial: No Anxiety Integumentary: No Blood Disorders: No ("BLUE TOE SYNDROME") Adverse Reaction/Blood Tranf: No (ERICKA DUARTE) Family Medical History Cardiovascular disease 19 MOTHER Cataracts 19 MOTHER Diabetes mellitus 19 MOTHER FH: diabetes mellitus Hypertension 19 FATHER G8 BROTHER Kidney disease 19 FATHER (POLYCYSTIC KIDNEY DISEASE) G8 BROTHER (PKD) G8 SISTER (PKD) Myocardial infarction 19 MOTHER No Family History of: AIDS Abdominal aortic aneurysm [place]'s disease Alcoholism Alzheimer's disease Arthritis Asthma Colon cancer Completed stroke Dementia Drug abuse Glaucoma Parkinson's disease Prostate cancer Psychosocial problem Respiratory disorder Seizure disorder Severe allergy Thyroid disease Tuberculosis No Pertinent Family Hx (ERICKA DUARTE) Physical Exam Vital Signs Vital Signs - First Documented 05/31/21 21:53 Temp 36.5 Pulse 93 Resp 20 B/P (MAP) 142/93 (109) Pulse Ox 96 O2 Delivery Room Air (AZIZA,SULMA K DO) Vital Signs Capillary Refill : (ERICKA DUARTE) General Appearance: WD/WN, no apparent distress HEENT: PERRL/EOMI, normal ENT inspection, TMs normal, pharynx normal Neck: full range of motion, supple, normal inspection Cardiovascular: regular rate, rhythm, no edema, no gallop, no JVD Respiratory: chest non-tender, lungs clear, normal breath sounds, no respiratory distress Gastrointestinal: normal bowel sounds, non tender, soft, no organomegaly Back: normal inspection, no CVA tenderness Extremities: normal range of motion, non-tender, normal inspection, no pedal edema 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 Mild adipose involvement.) (ERICKA DUARTE) Procedures/Interventions Wound Location: Face Other Wound Location Inferior right ear Wound Length (cm): 3 Wound's Depth, Shape: superficial, sub Q Wound Explored: clean Irrigated w/ Saline (ccs): 150 Betadine Prep?: Yes Anesthesia: 1% Lidocaine Volume Anesthetic (ccs): 3 Wound Debrided: minimal Suture: Prolene Suture Size: 5-0 Number of Sutures: 6 Layer Closure?: 1 Sterile Dressing Applied?: Yes (ERICKA DUARTE) Progress/Results/Core Measures Results/Orders Vital Signs/I&O 05/31/21 21:53 Temp 36.5 Pulse 93 Resp 20 B/P (MAP) 142/93 (109) Pulse Ox 96 O2 Delivery Room Air (SULMA ERVIN DO) Blood Pressure Mean: 109 Departure Communication (PCP) Patient had a right sided facial cyst removed on [address] Camilo. She had sutures removed today. Wound dehiscence occurred while at work. Mild adipose involvement but the length of the wound is open. Discussed patient with Dr. Camilo who recommends applying sutures here. This was performed. Procedure document no. She does have topical antibiotic ointment she will continue using. Attempted to closely approximate the tissue but was slightly limited secondary to some of the healing process. Follow-up with Dr. Camilo in 7 to 10 days. (ERICKA DUARTE) Impression Primary Impression: Wound dehiscence Disposition: 01 HOME, SELF-CARE Condition: Stable Departure-Patient Inst. Decision time for Depature: 22:35 (ERICKA DUARTE) Referrals: [facility] (PCP) Primary Care Physician TOO CAMILO DO Patient Instructions: Wound Dehiscence (DC) Scripts No Active Prescriptions or Reported Meds ATTENDING PHYSICIAN NOTE: I WAS PHYSICALLY PRESENT ER PHYSICIAN, BUT I WAS NOT INVOLVED IN ANY DECISION MAKING OR ANY CARE OF THIS PATIENT. (SULMA ERVIN DO) ERICKA DUARTE May 31, 2021 22:33 SULMA ERVIN DO Jun 01, 2021 02:26
== END 2021-05-31 22:43 | disposition home or self-care (01) ==
LOC: EDUNIT# 21:36 → ER 21:41
DX: T81.30XA Disruption of wound, unspecified, initial encounter (principal)
CPT/HCPCS: 99281

== ENCOUNTER 2021-09-19 16:41 | Emergency (ER) | payer BC, MEDICAID ==
[~2021-09-19] VITALS: Ht 154 cm; Wt 74.0 kg
[2021-09-19] MEDS ORDERED: SULF-221 PO (18:36)
--- NOTE | 2021-09-19 18:39 | ED Integumentary General ---
General Chief Complaint: Bite-Animal/Human/Insect Stated Complaint: SPIDER BITE ON BUTT Nursing Triage Note: PT PRESENTS TO ED FOR SPIDER BITE ON RIGHT BUTTOCK. PT UNSURE WHAT TYPE OF SPIDER IT WAS. PARTNER WAS ABLE TO KILL THE SPIDER AFTER THE BITE. BITE HAS BEEN PRESENT FOR TWO DAYS. REPORTS WORSENING IN PAIN SINCE. PT ALERT AND ORIENTED. Source: patient Exam Limitations: no limitations History of Present Illness Date Seen by Provider: Sep 19, 2021 Time Seen by Provider: 18:21 Initial Comments Patient to the ER by private with chief complaint that in the last 2 days she thinks she got bit by a spider on her right buttock. She says her found a spider in the bed smashed into airway. She is not sure what it looks like. She is having increasing redness swelling pain in the area. She is not having fevers chills nausea vomiting shakes or diarrhea. She has not had a tetanus vaccine in the last 5 years. Allergies and Home Medications Allergies Coded Allergies: No Known Drug Allergies (Unverified , 09/19/13) Patient Home Medication List Home Medication List Reviewed: Yes Sulfamethoxazole/Trimethoprim (Bactrim Ds Tablet) 800 Mg-160 Mg Tablet, 1 EACH PO BID Prescribed by: LISA GAY on 09/19/21 [id number] Review of Systems Review of Systems Constitutional: No chills, No diaphoresis EENTM: No ear discharge, No ear pain Respiratory: No cough, No dyspnea on exertion Cardiovascular: No chest pain, No edema Gastrointestinal: No abdominal pain, No constipation, No diarrhea Genitourinary: No discharge, No dysuria Musculoskeletal: No back pain, No joint pain All Other Systems Reviewed Negative Unless Noted: Yes Past Ctoyfco-Ymyiif-Gorvrt Hx Patient Social History Tobacco Use?: Yes Tobacco type used: Cigarettes Smoking Status: Current Everyday Smoker Use of E-Cig and/or Vaping dev: No Substance use?: Yes Substance type: Marijuana Additional substance use comme: LAST USED 09/12/21 Substance frequency: Once in a while Alcohol Use?: Yes Alcohol type: Beer Alcohol Frequency: Once in a while Pt feels they are or have been: No Immunizations Up To Date Tetanus Booster (TDap): Unknown PED Vaccines UTD: Yes Past Medical History Surgery/Hospitalization HX: HYSTERECTOMY, TENDONITIS, RT WRIST, LEFT ELBOW BLADDER SX GOUT Surgeries: Yes (PYLENOIDAL CYST, LAPAROSCOPIC RSO, ureteral reimplantation WHEN 5, ) Bladder Surgery, Hysterectomy, Oophorectomy, Tubal Ligation Respiratory: No Currently Using CPAP: No Currently Using BIPAP: No Cardiac: Yes ("BLUE TOE SYNDROME") Neurological: No Reproductive Disorders: Yes [employer] History: Hysterectomy Sexually Transmitted Disease: No HIV/AIDS: No Genitourinary: No Gastrointestinal: No Musculoskeletal: No Endocrine: No HEENT: Yes (GLASSES) Loss of Vision: Denies Hearing Impairment: Denies Cancer: No Psychosocial: No Anxiety Integumentary: No Blood Disorders: No ("BLUE TOE SYNDROME") Adverse Reaction/Blood Tranf: No Family Medical History Cardiovascular disease 19 MOTHER Cataracts 19 MOTHER Diabetes mellitus 19 MOTHER FH: diabetes mellitus Hypertension 19 FATHER G8 BROTHER Kidney disease 19 FATHER (POLYCYSTIC KIDNEY DISEASE) G8 BROTHER (PKD) G8 SISTER (PKD) Myocardial infarction 19 MOTHER No Family History of: AIDS Abdominal aortic aneurysm [place]'s disease Alcoholism Alzheimer's disease Arthritis Asthma Colon cancer Completed stroke Dementia Drug abuse Glaucoma Parkinson's disease Prostate cancer Psychosocial problem Respiratory disorder Seizure disorder Severe allergy Thyroid disease Tuberculosis No Pertinent Family Hx Physical Exam Vital Signs Vital Signs - First Documented 09/19/21 17:57 Temp 37.1 Pulse 88 Resp 16 Pulse Ox 97 Capillary Refill : Less Than 3 Seconds General Appearance: WD/WN, no apparent distress HEENT: PERRL/EOMI, pharynx normal Cardiovascular: regular rate, rhythm Respiratory: lungs clear, normal breath sounds, no respiratory distress, no accessory muscle use Gastrointestinal: normal bowel sounds, non tender Neurologic/Psychiatric: alert, normal mood/affect, oriented x 3 Skin: normal color, warm/dry, other (2 black punctate woodruff with some pointing overriding a 2 cm area of induration with a little fluctuance and a 4 cm area of erythema without induration warmth and tenderness to palpation. All over the lower gluteal fold on the right side) Procedures/Interventions I&D : Site: See right buttock inferior gluteal fold Blade Size: 11 I & D Procedure: betadine prep (Alcohol) Progress Skin was cleansed with alcohol and infiltrated with 2 cc of 1% lidocaine without epinephrine. When the patient was ascertained to be well anesthetized superficially we took an 11 blade scalpel and made a 2 mm x 3 mm crosswise incision expressing 2 to 3 cc of thin purulent material. The wound was probed and loculations were broken up using the blunt end of a sterile tipped cotton swab and flushed with sterile saline. We then applied a loose gauze dressing. Patient tolerated the procedure well. Suture Size: 5-0 Progress/Results/Core Measures Results/Orders My Orders Orders - LISA GAY Lidocaine 1% Inj 20 Ml (Xylocaine 1% Inj (09/19/21 18:45) Sulfamethoxazole/Trimet Ds Tab (Bactrim (09/19/21 18:45) Dipht,Pertuss(Acell),Tet Adult (Boostrix (09/19/21 18:45) Medications Given in ED Current Medications Medications Dose Ordered Sig/Foreign Route Start Time Stop Time Status Last Admin Dose Admin Trimethoprim/ Sulfamethoxazole 1 ea ONCE ONCE PO 09/19/21 18:45 09/19/21 18:46 DC 09/19/21 18:38 1 EA Vital Signs/I&O 09/19/21 17:57 Temp 37.1 Pulse 88 Resp 16 B/P (MAP) Pulse Ox 97 Departure Impression Primary Impression: Spider bite wound Qualified Codes: T63.301A - Toxic effect of unspecified spider venom, accidental (unintentional), initial encounter Disposition: HOME, SELF-CARE Condition: Stable Departure-Patient Inst. Decision time for Depature: 18:59 Referrals: [facility] [place] Primary Care Physician Patient Instructions: Spider Bites Add. Discharge Instructions: Keep the wound clean with regular soap and water. Cover with a dressing and change daily or more frequently if it becomes soiled. If the redness continues to spread despite antibiotics down your leg or up into your trunk then you need to return to the doctor for reexamination. Bactrim DS 1 tablet twice a day with food to prevent infection. Tylenol and ibuprofen as necessary for pain. Warm compresses can be helpful to increase blood flow to the area and help with pain relief and healing. All discharge instructions reviewed with patient and/or family. Voiced understanding. Scripts Sulfamethoxazole/Trimethoprim (Bactrim Ds Tablet) 800 Mg-160 Mg Tablet 1 EACH PO BID for 7 Days, #14 TAB 0 Refills Prov: LISA GAY 09/19/21 LISA GAY Sep 19, 2021 18:39
[2021-09-19] MEDS ORDERED: TETANUS,DIPTH,PERTUSS P/F (BOOSTRIX) 0.5 ML VIAL IM ONE (18:45)
[2021-09-19] MEDS ORDERED: TRIM/SULFAMETH 160/800 (SEPTRA DS) TAB PO ONE (18:45)
[2021-09-19] MEDS ORDERED: LIDOCAINE 1% INJ 20 ML VIAL INJ ONE (18:45)
== END 2021-09-19 19:05 | disposition home or self-care (01) ==
LOC: EDUNIT# 16:41 → ER 16:43
DX: T63.301A Toxic effect of unspecified spider venom, accidental (unintentional), initial encounter (principal); F17.210 Nicotine dependence, cigarettes, uncomplicated; Z28.310 Unvaccinated for COVID-19
CPT/HCPCS: 90715; 99281